=== PATIENT | female | born 1930 | race Caucasian/White ===

== ENCOUNTER 2018-04-19 12:16 | Emergency (ER) | payer MEDICARE, OTHER ==
--- NOTE | 2018-04-19 12:35 | UC ---
Respiratory Complaint HPI - HPI Summary HPI Summary: 87 yo female presents accompanied by son with complaints of a cough. Pt has Alzheimer's at baseline. Pt normally lives in [place], but is here visiting her son. Son tells me that over the last few days pt has had a dry cough. Last night cough seemed worse and pt seemed more confused than usual. This morning cough continued to sound "bad". Son does not think she has been feverish and does not seem SOB. Had a UTI last about a month ago. - History of Current Complaint Chief Complaint: UCRespiratory Stated Complaint: COUGH,BODY ACHES Time Seen by Provider: 04/19/18 12:35 Hx Obtained From: Patient, Family/Direct Service Provider Hx From Patient Unobtainable Due To: Dementia Onset/Duration: Gradual Onset Severity Currently: None Pain Intensity: 0 - Allergies/Home Medications Allergies/Adverse Reactions: Allergies Allergy/AdvReac Type Severity Reaction Status Date / Time No Known Allergies Allergy Verified 04/19/18 12:31 Home Medications: Home Medications Aspirin 81 mg PO 04/19/18 [History] Calcium Carbonate/Vitamin D3 [Calcium/Vitamin D] 1 cap PO 04/19/18 [History] Cranberry Conc/C/Bacill Coag [Cranberry Tablet] 2 each PO 04/19/18 [History] Glucosamine/D3/Boswellia Toña [Osteo Bi-Flex/5-Loxin Adv] 1 tab PO 04/19/18 [ History] Isosorbide Mononitrate [Isosorbide Mononitrate ER] 30 mg PO DAILY 04/19/18 [ History Confirmed 04/19/18] Levothyroxine TAB* [Synthroid TAB*] 88 mcg PO 0800 04/19/18 [History Confirmed 04/19/18] Loratadine [Claritin 10 MG CAP] 10 mg PO 04/19/18 [History] Memantine XR CAP* [Namenda XR CAP*] 28 mg PO DAILY 04/19/18 [History Confirmed 04/19/18] Metoprolol Succinate [Toprol Xl] 25 mg PO BID 04/19/18 [History Confirmed ] Multivit-Min/Iron/Folic/Lutein [Centrum Silver Women Tablet] 1 each PO 04/19/18 [History] [place]-3 Fatty Acids/Fish Oil [[place] 3] 1 cap PO 04/19/18 [History] Turmeric Root Extract [Ra Turmeric] 500 mg PO 04/19/18 [History] clonazePAM [Clonazepam Odt] 0.125 mg PO PRN 04/19/18 [History] PMH/Surg Hx/FS Hx/Imm Hx Cardiovascular History: Hypertension Neurological History: Dementia - Surgical History Surgical History: None - Family History Known Family History: Positive: None - Social History Occupation: Retired Lives: With Family Alcohol Use: None Substance Use Type: None Smoking Status (MU): Former Smoker Review of Systems All Other Systems Reviewed And Are Negative: Yes Constitutional: Positive: Negative Skin: Positive: Negative Eyes: Positive: Negative ENT: Positive: Negative Respiratory: Positive: Cough Cardiovascular: Positive: Negative Gastrointestinal: Positive: Negative Neurovascular: Positive: Negative Neurological: Positive: Negative Psychological: Positive: Negative Physical Exam - Summary Physical Exam Summary: GENERAL: NAD. WDWN. No pain distress. SKIN: No rashes, sores, lesions, or open wounds. HEENT: Head: AT/NC Eyes: Conjunctiva clear without inflammation or discharge. Ears: Hearing grossly normal. TMs intact, no bulging, erythema, or edema. Nose: Nasal mucosa pink and moist. NTTP maxillary and frontal sinus. Throat: Posterior oropharynx without exudates, erythema, or tonsillar enlargement. Uvula midline. NECK: Supple. Nontender. No lymphadenopathy. CHEST: Decreased breath sounds with crackles LLL. No accessory muscle use. Breathing comfortably and in no distress. CV: RRR. Without m/r/g. Pulses intact. Cap refill <2seconds NEURO: Alert. PSYCH: Age appropriate behavior. Triage Information Reviewed: Yes Vital Signs: Initial Vital Signs Temp 99 F 04/19/18 12:28 Pulse 113 04/19/18 12:28 Resp 20 04/19/18 12:28 BP 109/78 04/19/18 12:28 Pulse Ox 98 04/19/18 12:28 Laboratory Tests 04/19/18 13:09 Influenza A (Rapid) Negative Influenza B (Rapid) Negative Vital Signs: Temp Pulse Resp BP Pulse Ox 101 F 96 18 111/76 91 04/19/18 13:35 04/19/18 13:35 04/19/18 13:35 04/19/18 13:35 04/19/18 13:53 Vital Signs Reviewed: Yes UC Diagnostic Evaluation - Laboratory O2 Sat by Pulse Oximetry: 98 Respiratory Course/Dx - Course Course Of Treatment: CXR: IMPRESSION: PATCHY AIRSPACE DISEASE OF THE LEFT MID AND LOWER LUNG. RECOMMEND FOLLOW-UP UNTIL. RESOLUTION TO EXCLUDE UNDERLYING PULMONARY PARENCHYMAL PATHOLOGY. Pt's vitals were rechecked and she was found to be feverish, tachycardic (~115), and O2% was between 89-92% on RA. Given these findings, her age, likely PNA, and PMHx - I advised pt and her son to be further evaluated in the ED for PNA with hypoxia vs early sepsis. Pt and son were agreeable to this. Declined ambulance transfer. Report called to Dr. Jason in the ED. - Differential Dx/Diagnosis Provider Diagnosis: LLL pneumonia, Dementia Discharge - Sign-Out/Discharge Documenting (check all that apply): Patient Departure All imaging exams completed and their final reports reviewed: Yes - Discharge Plan Condition: Stable Disposition: HOME-RECOMMEND TO ED Referrals: James Zhu DO [Primary Care Provider] - Additional Instructions: Please go to the ER for further evaluation of your illness. - Billing Disposition and Condition Condition: STABLE Disposition: Home-Recommend to ED
[2018-04-19 13:36] VITALS: BP 111/76
== END 2018-04-19 13:56 | disposition home health service (06) ==
LOC: UCEAST 12:16
DX: J18.9 Pneumonia, unspecified organism (principal); G20 Parkinson's disease; F02.80 Dementia in other diseases classified elsewhere, unspecified severity, without behavioral disturbance, psychotic disturbance, mood disturbance, and anxiety
CPT/HCPCS: 71046; 99212; G0463

== ENCOUNTER 2018-04-19 15:05 | Inpatient (IN) | payer MEDICARE, OTHER ==
[2018-04-19 16:10] LABS: ABS Basophils 0 10^3/ul (0-0.2); ABS Eosinophils 0.1 10^3/ul (0-0.6); ABS Lymphocytes 1.9 10^3/ul (1.0-4.8); ABS Monocytes 1.5 10^3/ul (0-0.8); ABS Neutrophils 14.8 10^3/ul (1.5-7.7); ABS Nucleated RBC 0 10^3/ul; Eosinophil % 0.5 %; Hematocrit 44 % (35-47); Hemoglobin 14.9 g/dl (12.0-16.0); Lymphocyte % 10.1 %; Mean Corpuscular HGB Conc 34 g/dl (31-36); Mean Corpuscular Hemoglobin 33 pg (27-31); Mean Corpuscular Volume 96 fL (80-97); Mean Platelet Volume 9.5 fL (7.4-10.4); Nucleated Red Blood Cells % 0; Platelet Count 205 10^3/ul (150-450); Red Blood Count 4.58 10^6/ul (4.00-5.40); Red Cell Distribution Width 14 % (10.5-15); White Blood Count 18.3 10^3/ul (3.5-10.8)
[2018-04-19 16:24] LABS: Albumin 4.3 g/dL (3.2-5.2); Albumin/Globulin Ratio 1.6 (1-3); BUN/Creatinine Ratio 19.8 (8-20); Calcium 9.5 mg/dL (8.6-10.3); EGFR African American 75.9 (>60); EGFR Non-African American 62.7 (>60); Globulin 2.7 g/dL (2-4); Total Bilirubin 1.6 mg/dL (0.2-1.0)
[2018-04-19] MEDS ORDERED: NS 0.9% 1000 ML** 2,000 ML IV ONE (16:49)
[2018-04-19] MEDS ORDERED: Azithromycin IV(*) 500 MG in NS 0.9% 250 ML* 250 ML IVPB ONE (16:49)
[2018-04-19] MEDS ORDERED: cefTRIAXone(*) 1 GM in NS 0.9% 50 ML* 50 ML IVPB ONE (16:49)
[2018-04-19] MEDS ORDERED: cefTRIAXone(*) 1 GM ADVAN/BAG ONE (17:06)
--- NOTE | 2018-04-19 17:16 | ED ---
Respiratory - HPI Summary HPI Summary: This pt is an 87 y/o female [facility] referred from [facility] c/o cough and SOB today. Son is present and is giving the history. Son states pt has had a cough over the last few days but worsened yesterday throughout the day. Son reports pt's confusion also seemed to be worsening. Pt has been aching all over and "has been coughing her head off." At Urgent Care pt had a temperature of 100F and prior to discharge from Urgent Care pt had a temp of 101F. Son notes pt had a chest XR that according to the PA in Urgent Care showed pneumonia. Per Urgent Care note, pt had been saturating around 89-92% on room air. Son states pt lives in [place] and she came to visit him on 04/09/18. Pt is a former smoker, quit in 1979. Denies hx of COPD, DM, emphysema, asthma. - History of Current Complaint Chief Complaint: EDShortnessOfBreath Stated Complaint: CHEST DISCOMFORT/COUGH/FEVER/SENT FROM CC Time Seen by Provider: 04/19/18 16:48 Hx Obtained From: Patient, Family/Implementation Engineer - Son Onset/Duration: Lasting Days, Still Present Current Severity: Moderate Pain Intensity: 0 Character: Cough (Nonproductive), Dyspnea at Rest Aggravating Factor(s): Nothing Alleviating Factor(s): Nothing Associated Signs and Symptoms: Fever, SOB - Allergy/Home Medications Allergies/Adverse Reactions: Allergies Allergy/AdvReac Type Severity Reaction Status Date / Time No Known Allergies Allergy Verified 04/19/18 12:31 Home Medications: Home Medications Aspirin EC TAB* [Ecotrin EC Low Dose 81 MG*] 81 mg PO QAM 04/19/18 [History Confirmed 04/19/18] Calcium Carb/Vit D3/Minerals [Calcium 600+D Plus [place]] 1 tab PO QPM 04/19/18 [ History Confirmed 04/19/18] Cranberry Conc/C/Bacill Coag [Cranberry Tablet] 1 tab PO QAM 04/19/18 [History Confirmed 04/19/18] Cranberry Conc/C/Bacill Coag [Cranberry Tablet] 2 tab PO QPM 04/19/18 [History Confirmed 04/19/18] Cyanocobalamin TAB* [Vitamin B12 TAB*] 500 mcg PO DAILY 04/19/18 [History Confirmed 04/19/18] Glucosamine/D3/Boswellia Toña [Osteo Bi-Flex Tablet] 1 tab PO QPM 04/19/18 [ History Confirmed 04/19/18] Isosorbide Mononitrate ER TAB* [Imdur ER TAB*] 30 mg PO QAM 04/19/18 [History Confirmed 04/19/18] Levothyroxine TAB* [Synthroid TAB*] 88 mcg PO QAM 04/19/18 [History Confirmed ] LoraTADine TAB(NF) [Claritin 10 MG TAB(NF)] 10 mg PO QAM 04/19/18 [History Confirmed 04/19/18] Memantine XR CAP* [Namenda XR CAP*] 28 mg PO QAM 04/19/18 [History Confirmed 07/03] Metoprolol Tartrate TAB* [Lopressor TAB*] 25 mg PO BID 04/19/18 [History Confirmed 04/19/18] Multivit-Min/Iron/Folic/Lutein [Centrum Silver Women Tablet] 1 tab PO QPM [History Confirmed 04/19/18] [place]-3 Fatty Acids (Nf) [Fish Oil (NF)] 1,000 mg PO QAM 04/19/18 [History Confirmed 04/19/18] Turmeric/Turmeric Root Extract [Turmeric 500 mg Capsule] 1 cap PO QAM 04/19/18 [ History Confirmed 04/19/18] clonazePAM [Clonazepam] 0.125 mg PO DAILY PRN 04/19/18 [History Confirmed ] PMH/Surg Hx/FS Hx/Imm Hx Endocrine/Hematology History: Denies: Hx Diabetes Cardiovascular History: Reports: Hx Hypertension Respiratory History: Denies: Hx Asthma, Hx Chronic Obstructive Pulmonary Disease (COPD) Musculoskeletal History: Reports: Hx Arthritis Neurological History: Reports: Other Neuro Impairments/Disorders - Alzheimer's Infectious Disease History: No Infectious Disease History: Denies: Traveled Outside the [place] in Last 30 Days - Family History Known Family History: Negative: Cardiac Disease, Hypertension, Diabetes - Social History Alcohol Use: None Substance Use Type: Reports: None Smoking Status (MU): Former Smoker Review of Systems Positive: Fever. Negative: Chills Negative: Erythema Negative: Sore Throat Negative: Chest Pain Positive: Cough. Negative: Shortness Of Breath Negative: Abdominal Pain, Vomiting, Nausea Negative: dysuria, hematuria Positive: Myalgia. Negative: Edema Negative: Rash Neurological: Other - NEG: dizziness All Other Systems Reviewed And Are Negative: Yes Physical Exam - Summary Physical Exam Summary: Constitutional: Well-developed, Well-nourished, Alert. (-) Distressed Skin: Warm, Dry HENT: Normocephalic; Atraumatic Eyes: Conjunctiva normal Neck: Musculoskeletal ROM normal neck. (-) JVD, (-) Stridor, (-) Tracheal deviation Cardio: Rhythm regular, rate normal, Heart sounds normal; Intact distal pulses; The pedal pulses are 2+ and symmetric. Radial pulses are 2+ and symmetric. (-) Murmur Pulmonary/Chest wall: Effort normal. Rhonchi bilaterally. Diminished breath sounds. Abd: Soft, (-) Tenderness, (-) Distension, (-) Guarding, (-) Rebound Musculoskeletal: (-) Edema Lymph: (-) Cervical adenopathy Neuro: Alert, Oriented x3 Psych: Mood and affect Normal Triage Information Reviewed: Yes Vital Signs On Initial Exam: Initial Vitals Temp Pulse Resp BP Pulse Ox 99.4 F 96 24 152/67 96 04/19/18 15:11 04/19/18 15:11 04/19/18 15:11 04/19/18 15:11 04/19/18 15:11 Vital Signs Reviewed: Yes Diagnostics - Vital Signs Vital Signs Temp Pulse Resp BP Pulse Ox 04/19/18 15:11 99.4 F 96 24 152/67 96 - Laboratory Lab Results: Lab Results 04/19/18 04/19/18 04/19/18 Range/Units 16:00 16:00 16:00 WBC 18.3 H (3.5-10.8) 10^3/ul RBC 4.58 (4.00-5.40) 10^6/ul Hgb 14.9 (12.0-16.0) g/dl Hct 44 (35-47) % MCV 96 (80-97) fL MCH 33 H (27-31) pg MCHC 34 (31-36) g/dl RDW 14 (10.5-15) % Plt Count 205 (150-450) 10^3/ul MPV 9.5 (7.4-10.4) fL Neut % (Auto) 80.8 % Lymph % (Auto) 10.1 % [place] % (Auto) 8.3 % Eos % (Auto) 0.5 % Baso % (Auto) 0.3 % Absolute Neuts (auto) 14.8 H (1.5-7.7) 10^3/ul Absolute Lymphs (auto) 1.9 (1.0-4.8) 10^3/ul Absolute Monos (auto) 1.5 H (0-0.8) 10^3/ul Absolute Eos (auto) 0.1 (0-0.6) 10^3/ul Absolute Basos (auto) 0 (0-0.2) 10^3/ul Absolute Nucleated RBC 0 10^3/ul Nucleated RBC % 0 Sodium 141 (135-145) mmol/L Potassium 4.0 (3.5-5.0) mmol/L Chloride 106 (101-111) mmol/L Carbon Dioxide 28 (22-32) mmol/L Anion Gap 7 (2-11) mmol/L BUN 17 (6-24) mg/dL Creatinine 0.86 (0.51-0.95) mg/dL Est GFR ( Amer) 75.9 (>60) Est GFR (Non-Af Amer) 62.7 (>60) BUN/Creatinine Ratio 19.8 (8-20) Glucose 131 H (70-100) mg/dL Lactic Acid 1.1 (0.5-2.0) mmol/L Calcium 9.5 (8.6-10.3) mg/dL Total Bilirubin 1.60 H (0.2-1.0) mg/dL AST 12 L (13-39) U/L ALT 9 (7-52) U/L Alkaline Phosphatase 65 (34-104) U/L Total Protein 7.0 (6.4-8.9) g/dL Albumin 4.3 (3.2-5.2) g/dL Globulin 2.7 (2-4) g/dL Albumin/Globulin Ratio 1.6 (1-3) Result Diagrams: 04/19/18 16:00 04/19/18 16:00 Lab Statement: Any lab studies that have been ordered have been reviewed, and results considered in the medical decision making process. - Radiology Chest XR from Urgent Care Radiology Interpretation Completed By: Radiologist Summary of Radiographic Findings: IMPRESSION: Patchy airspace disease of the left mid and lower lung. Recommend follow-up until resolution to exclude underlying pulmonary parenchymal pathology. Dr. Jason has reviewed this report. Disposition - Course Assessment/Plan: Pt is an 87 y/o female who presents to the ED referred from [facility] c/o cough and SOB today. Pt has been aching all over and "has been coughing her head off." At Urgent Care pt had a temperature of 100F and prior to discharge from Urgent Care pt had a temp of 101F. Son notes pt had a chest XR that according to the PA in Urgent Care showed pneumonia. Per Urgent Care note, pt had been saturating around 89-92% on room air. In the ED course the pt was given IV fluids, Rocephin, Azithromycin. Chest XR shows patchy airspace disease of the left mid and lower lung. Recommend follow-up until resolution to exclude underlying pulmonary parenchymal pathology. Chest XR is consistent with pneumonia. I discussed the case with the hospitalist who accepted the pt for admission. - Diagnoses Provider Diagnoses: Pneumonia - Physician Notifications Discussed Care Of Patient With: Cassandra Kemp - hospitalist Time Discussed With Above Provider: 17:32 Instructed by Provider To: Admit As Inpatient Discharge - Sign-Out/Discharge Documenting (check all that apply): Patient Departure - Admit to [facility] - Discharge Plan Condition: Stable Disposition: ADMITTED TO [facility] Referrals: James Zhu DO [Primary Care Provider] - - Attestation Statements Document Initiated by Scribe: Yes Documenting Scribe: Rosy Carvalho Provider For Whom Scribe is Documenting (Include Credential): Pete Jason MD Scribe Attestation: Rosy Elmore, scribed for Pete Jason MD on 04/19/18 at 1858. Status of Scribe Document: Ready
[2018-04-19] MEDS ORDERED: Ondansetron INJ* 2 MG/ML VIAL IV PRN (18:19)
[2018-04-19] MEDS ORDERED: Albuterol/Ipratropium NEB.SOL* Albuterol 2.5 MG/Ipratropium 0.5 MG 3 ML INH PRN (18:49)
[2018-04-19] MEDS ORDERED: clonazePAM TAB(*) 0.5 MG PO PRN (18:53)
--- NOTE | 2018-04-19 20:14 | HP ---
CC: Dr. Sara Anaya * ADMISSION HISTORY AND PHYSICAL: DATE OF ADMISSION: 04/19/18 PRIMARY CARE PROVIDER: Dr. Sara Anaya in [place]. MY ATTENDING WHILE IN THE HOSPITAL: Dr. Cassandra Kemp.* (DICTATED BY JAZZY DE SOUZA) CHIEF COMPLAINT: Cough, shortness of breath x1 day. HISTORY OF PRESENT ILLNESS: Ms. Arreola is an 87-year-old female with past medical history significant for hypertension, dementia, and GERD, who was in her normal state of health, she recently came back from [place] and was staying with her son with two small children, when she began to develop a cough , shortness of breath, and subjective fevers for 24 hours. The patient's cough is nonproductive and no hemoptysis. The patient has been having significant shortness of breath on exertion and unsteadiness, but no wheezing, no passing out. The patient was recently treated for UTI with unknown antibiotics. The patient has no other recent illnesses or change in her medication. The patient has been staying with a 3-year-old and a 4-year-old and has no other sick contacts. The patient, at this point, is only able to walk several feet without shortness of breath. The patient went to initially Urgent Care and was found to have a left-sided infiltrate on her chest x- ray and was sent to the emergency department for further evaluation. In the emergency department, the patient received azithromycin and ceftriaxone. The patient has not been recently hospitalized and we were asked to evaluate the patient for admission. PAST MEDICAL HISTORY: Hypertension, anxiety, hypothyroidism, GERD, dementia. PAST SURGICAL HISTORY: Hip replacement in 2016. MEDICATIONS: 1. Synthroid 88 mcg p.o. daily. 2. Metoprolol tartrate 25 mg p.o. daily. 3. Imdur 30 mg p.o. daily. 4. Namenda XR 28 mg p.o. daily. 5. Aspirin 81 mg p.o. daily. 6. Klonopin 0.25 mg p.o. daily as needed. 7. Osteo Bi-Flex. 8. Calcium/D 600/300. 9. [place]-3 fatty acids 100 mg p.o. daily. 10. Claritin 10 mg p.o. daily. 11. Turmeric. 12. Cranberry. 13. Vitamin B12, unknown dose. ALLERGIES: No known drug allergies. FAMILY HISTORY: Unknown except for a sister who had a CVA and a brother who is alive and has no known past medical history; he is in his 80s. SOCIAL HISTORY: The patient quit in 1979 with an unknown pack year history before that. The patient drinks alcohol occasionally. Patient has never used illicit drugs. 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 The patient is and has 3 children. REVIEW OF SYSTEMS: A 14-point review of systems was reviewed and is negative except as above in the HPI. PHYSICAL EXAMINATION GENERAL: The patient is an 87-year-old female who appears stated age and sitting comfortably in bed, in no acute distress. VITAL SIGNS: At the time of evaluation, temperature 100.2, pulse rate 86, respiratory rate 24, oxygen saturation 95% on room air, blood pressure 146/73. HEENT: Head: Normocephalic, atraumatic. Sclerae anicteric. No conjunctival injection. Nasal mucosa moist. Oral mucosa moist. No pharyngeal erythema, discharge, or exudate. No sinus tenderness. NECK: Supple, nontender. No lymphadenopathy. No carotid bruits auscultated. No JVD. RESPIRATORY: Diminished breath sounds in the left lower and middle lobes. No other significant adventitious lung sounds. Good air exchange bilaterally. CARDIAC: Regular rate and rhythm. No clicks, murmurs, gallops, or rubs. Pulses are 2+ in the bilateral dorsalis pedis, posterior tibial, and radial areas. ABDOMEN: Soft, nontender, nondistended. Bowel sounds present and normoactive in all 4 quadrants. No hepatosplenomegaly. No abdominal bruits auscultated. No hepatojugular reflux. GENITOURINARY: No suprapubic or CVA tenderness. NEUROLOGIC: Cranial nerves II through XII intact. No focal deficits. Alert and oriented x3. PSYCHIATRIC: Pleasant and cooperative. DIAGNOSTIC STUDIES/LAB DATA: White blood cell count 18.3, hemoglobin 14.9, hematocrit 44, platelet count 205. Sodium 141, potassium 4.0, chloride 106, carbon dioxide 28, anion gap 7, BUN 17, creatinine 0.86, glucose 131, lactic acid 1.1, calcium 9.5. Bilirubin 1.6, AST 12, ALT 9, alkaline phosphatase 65. Protein 7.0, albumin 4.3, globulin 2.7. Studies: Chest x-ray shows patchy airspace densities in the left middle and lower lobes, recommend followup until resolution to exclude underlying pulmonary parenchymal pathology. Electrocardiogram is unremarkable. ASSESSMENT AND PLAN/IMPRESSION: Ms. Arreola is an 87-year-old female with past medical history significant for hypertension, hypothyroidism, anxiety, and gastroesophageal reflux disease, who presents to the emergency department with 1 day of cough and shortness of breath and was found to have consolidation on a chest x-ray consistent with pneumonia. The patient will be admitted to the hospital and will be treated with IV antibiotics and supportive care for community-acquired pneumonia. 1. Community-acquired pneumonia. The patient currently meets systemic inflammatory response syndrome criteria with a white blood cell count of 18 and a pulse rate above 90 and a respiratory rate above 20. The patient in the emergency department was given appropriate IV antibiotics and 30 mg/kg fluid bolus. The patient will have additional fluids as she is currently normotensive. The patient will be continued on ceftriaxone and azithromycin. The patient will be monitored closely. The patient has a pneumonia severity index of 75 indicating 0.9% to 2.8% chance of mortality and does not require ICU admission or other vasopressive agents at this time. 2. Dementia. Continue Namenda and supportive care. The patient is very pleasant. 3. Hypertension. Hold the patient's antihypertensives except for metoprolol at this time. Continue aspirin for primary prevention of myocardial infarction. 4. Anxiety. Continue clonazepam as needed. 5. DVT prophylaxis. The patient will have heparin subcu. 6. FEN. The patient will have a heart-healthy diet without caffeine and no additional fluids as above. 7. Code status. The patient would like to be a full code. The patient's surrogate decision maker will be her son, Christiano Arreola. 8. Disposition. The patient is admitted to observation for pneumonia. TIME SPENT: Approximately 60 minutes was spent on the admission of this patient , 30 of which was spent [id number] with the patient obtaining history and physical and discussing treatment plan. This plan was discussed with my attending, Dr. Cassandra Kemp; she is in agreement. JAZZY DE SOUZA [id number]/[facility] #: [id number] JUAN
[2018-04-19] MEDS: guaiFENesin ER TAB 600 MG PO SCH (21:30)
[2018-04-19] MEDS: Benzonatate CAP* 100 MG PO PRN (21:31)
[2018-04-19] MEDS: Heparin VIAL(*) 5000 UNITS/ML VIAL (FIVE THOUSAND) SUBCUT SCH (21:33)
[2018-04-19] MEDS: Metoprolol Tartrate TAB* 25 MG PO SCH (21:33)
[2018-04-19] MEDS: Acetaminophen TAB* 325 MG PO PRN (21:47)
[2018-04-20] MEDS: Heparin VIAL(*) 5000 UNITS/ML VIAL (FIVE THOUSAND) SUBCUT SCH ×2 (04:58→17:22)
[2018-04-20] MEDS: Levothyroxine TAB* 88 MCG TAB PO SCH (04:58)
[2018-04-20 06:29] LABS: ABS Basophils 0.2 10^3/ul (0-0.2); ABS Eosinophils 0.4 10^3/ul (0-0.6); ABS Lymphocytes 4.3 10^3/ul (1.0-4.8); ABS Neutrophils 9.6 10^3/ul (1.5-7.7); ABS Nucleated RBC 0 10^3/ul; Eosinophil % 2.4 %; Hematocrit 39 % (35-47); Lymphocyte % 27.9 %; Mean Corpuscular HGB Conc 34 g/dl (31-36); Mean Corpuscular Hemoglobin 32 pg (27-31); Mean Corpuscular Volume 95 fL (80-97); Mean Platelet Volume 9.6 fL (7.4-10.4); Nucleated Red Blood Cells % 0; Platelet Count 166 10^3/ul (150-450); Red Blood Count 4.04 10^6/ul (4.00-5.40); Red Cell Distribution Width 13 % (10.5-15); White Blood Count 15.5 10^3/ul (3.5-10.8)
[2018-04-20 06:54] LABS: BUN/Creatinine Ratio 19.4 (8-20); Calcium 8.2 mg/dL (8.6-10.3); EGFR African American 101.2 (>60); EGFR Non-African American 83.7 (>60); Magnesium 1.7 mg/dL (1.9-2.7); Potassium 3.4 mmol/L (3.5-5.0)
[2018-04-20] MEDS ORDERED: Potassium Chlor TAB* 20 MEQ TAB.ER PO ONE (09:35)
[2018-04-20] MEDS ORDERED: Calcium Gluconate INJ* 2 GM in NS 0.9% 100 ML* 100 ML IV ONE (09:36)
[2018-04-20] MEDS ORDERED: Magnesium Sulfate IV* 3 GM in NS 0.9% 100 ML* 100 ML IVPB ONE (09:36)
[2018-04-20] MEDS: guaiFENesin ER TAB 600 MG PO SCH ×2 (10:33→20:25)
[2018-04-20] MEDS: Memantine XR CAP* 28 MG CAP.XR PO SCH (10:33)
[2018-04-20] MEDS: Cetirizine* 10 MG TAB PO SCH (10:33)
[2018-04-20] MEDS: Cyanocobalamin TAB* 500 MCG PO SCH (10:33)
[2018-04-20] MEDS: Metoprolol Tartrate TAB* 25 MG PO SCH ×2 (10:33→20:25)
[2018-04-20] MEDS: Aspirin EC TAB* 81 MG TAB.EC PO SCH (10:33)
[2018-04-20 12:39] LABS: Urine Appearance Clear; Urine Bacteria Absent (Absent); Urine Bilirubin Negative (Negative); Urine Blood Negative (Negative); Urine Color Colorless; Urine Glucose Negative (Negative); Urine Ketones Negative (Negative); Urine Nitrite Negative (Negative); Urine Protein Negative (Negative); Urine Red Blood Cell Trace(0-2/hpf) (Absent); Urine Specific Gravity 1.002 (1.010-1.030); Urine Squamous Epithelial Cell Present (Absent); Urine Urobilinogen Negative (Negative); Urine White Blood Cell Trace(0-5/hpf) (Absent)
--- NOTE | 2018-04-20 15:04 | PN ---
Subjective Date of Service: 04/20/18 Interval History: Pt seen and examined. Meds and labs reviewed. CC: N/A ROS: Denied EATON/dizziness, F/C, N/V, CP, SOB, increased cough, sputum production , abd pain, diarrhea, constipation, dysuria, myalgias, arthralgias, throat pain , and new skin lesions. The rest of the 14 point ROS are unremarkable. PHYSICAL EXAM: GEN APPEARANCE: Awake, not in acute distress HEENT: NC/AT, PERRLA, moist oral mucosa, (-) throat erythema NECK: Soft, supple, (-) cervical LAD, (-)JVD HEART: S1S2 WNL, RRR, No MRG CHEST: CTA, BL, GAE, No W/R/R ABD: Soft, ND/NT, NABS 4x Q EXT: No C/C/E SKIN: Warm to touch PSYCH: No active psychosis, hallucinations, depression, SI/HI Objective Active Medications: Acetaminophen (Tylenol Tab*) 650 mg PO Q6H PRN PRN Reason: FEVER/PAIN Last Admin: 04/19/18 21:47 Dose: 650 mg Albuterol/Ipratropium (Duoneb (Albuterol 2.5 Mg/Ipratropium 0.5 Mg)) 1 neb INH Q6H PRN PRN Reason: SOB/WHEEZING Aspirin (Aspirin Ec Tab*) 81 mg PO QAM [facility] Last Admin: 04/20/18 10:33 Dose: 81 mg Benzonatate (Tessalon Cap*) 100 mg PO BID PRN PRN Reason: COUGH Last Admin: 04/19/18 21:31 Dose: 100 mg Cetirizine HCl (Zyrtec*) 10 mg PO QAM [facility] Last Admin: 04/20/18 10:33 Dose: 10 mg Clonazepam (Klonopin Tab(*)) 0.125 mg PO DAILY PRN PRN Reason: ANXIETY Cyanocobalamin (Vitamin B12 Tab*) 500 mcg PO DAILY [facility] Last Admin: 04/20/18 10:33 Dose: 500 mcg Guaifenesin (Mucinex*) 1,200 mg PO BID [facility] Last Admin: 04/20/18 10:33 Dose: 1,200 mg Heparin Sodium (Porcine) (Heparin Vial(*)) 5,000 units SUBCUT 0600,1800 [facility] Ceftriaxone Sodium 1 gm/ (Sodium Chloride) 50 mls @ 200 mls/hr IVPB Q24H [facility] Azithromycin 250 mg/ Sodium (Chloride) 250 mls @ 250 mls/hr IVPB Q24H [facility] Levothyroxine Sodium (Synthroid Tab*) 88 mcg PO QAM@0600 [facility] Last Admin: 04/20/18 04:58 Dose: 88 mcg Memantine (Namenda Xr Cap*) 28 mg PO QAM [facility] Last Admin: 04/20/18 10:33 Dose: 28 mg Metoprolol Tartrate (Lopressor Tab*) 25 mg PO BID [facility] Last Admin: 04/20/18 10:33 Dose: 25 mg Ondansetron HCl (Zofran Inj*) 4 mg IV Q6H PRN PRN Reason: NAUSEA Vital Signs - 8 hr 04/20/18 08:31 Temperature 97.3 F Pulse Rate 79 Respiratory 18 Rate Blood Pressure 121/78 (mmHg) O2 Sat by Pulse 92 Oximetry Oxygen Devices in Use Now: None Result Diagrams: 04/20/18 06:12 04/20/18 06:12 Additional Lab and Data: Lab Results 04/19/18 04/19/18 04/19/18 Range/Units 16:00 16:00 16:00 WBC 18.3 H (3.5-10.8) 10^3/ul RBC 4.58 (4.00-5.40) 10^6/ul Hgb 14.9 (12.0-16.0) g/dl Hct 44 (35-47) % MCV 96 (80-97) fL MCH 33 H (27-31) pg MCHC 34 (31-36) g/dl RDW 14 (10.5-15) % Plt Count 205 (150-450) 10^3/ul MPV 9.5 (7.4-10.4) fL Neut % (Auto) 80.8 % Lymph % (Auto) 10.1 % [place] % (Auto) 8.3 % Eos % (Auto) 0.5 % Baso % (Auto) 0.3 % Absolute Neuts (auto) 14.8 H (1.5-7.7) 10^3/ul Absolute Lymphs (auto) 1.9 (1.0-4.8) 10^3/ul Absolute Monos (auto) 1.5 H (0-0.8) 10^3/ul Absolute Eos (auto) 0.1 (0-0.6) 10^3/ul Absolute Basos (auto) 0 (0-0.2) 10^3/ul Absolute Nucleated RBC 0 10^3/ul Nucleated RBC % 0 Sodium 141 (135-145) mmol/L Potassium 4.0 (3.5-5.0) mmol/L Chloride 106 (101-111) mmol/L Carbon Dioxide 28 (22-32) mmol/L Anion Gap 7 (2-11) mmol/L BUN 17 (6-24) mg/dL Creatinine 0.86 (0.51-0.95) mg/dL Est GFR ( Amer) 75.9 (>60) Est GFR (Non-Af Amer) 62.7 (>60) BUN/Creatinine Ratio 19.8 (8-20) Glucose 131 H (70-100) mg/dL Lactic Acid 1.1 (0.5-2.0) mmol/L Calcium 9.5 (8.6-10.3) mg/dL Total Bilirubin 1.60 H (0.2-1.0) mg/dL AST 12 L (13-39) U/L ALT 9 (7-52) U/L Alkaline Phosphatase 65 (34-104) U/L Total Protein 7.0 (6.4-8.9) g/dL Albumin 4.3 (3.2-5.2) g/dL Globulin 2.7 (2-4) g/dL Albumin/Globulin Ratio 1.6 (1-3) Microbiology and Other Data: Microbiology 04/19/18 19:36 Legionella Urinary Antigen - Final Urine Negative Legionella Antigen Streptococcus pneumoniae Ag Screen - Final Negative S. pneumo Antigen Assess/Plan/Problems-Billing Assessment: - Patient Problems (1) CAP (community acquired pneumonia) Current Visit: Yes Status: Acute Code(s): J18.9 - PNEUMONIA, UNSPECIFIED ORGANISM SNOMED Code(s): 381846447 Comment: -Continue Rocephin and Azithromycin -Urine Ags (-) for Legionella and S. pneumoniae (2) Dementia Current Visit: Yes Status: Acute Code(s): F03.90 - UNSPECIFIED DEMENTIA WITHOUT BEHAVIORAL DISTURBANCE SNOMED Code(s): 25392931 Comment: -Continue Memantine (3) Hypertension Current Visit: Yes Status: Acute Code(s): I10 - ESSENTIAL (PRIMARY) HYPERTENSION SNOMED Code(s): 54391085 Comment: -Well-controlled -Continue Metoprolol (4) Hypothyroid Current Visit: Yes Status: Acute Code(s): E03.9 - HYPOTHYROIDISM, UNSPECIFIED SNOMED Code(s): 21847263 Comment: -Will re-check TSH in AM -Continue Levothyroxine (5) Anxiety Current Visit: Yes Status: Acute Code(s): F41.9 - ANXIETY DISORDER, UNSPECIFIED SNOMED Code(s): 19958519 Comment: -Continue Clonazepam (6) DVT prophylaxis Current Visit: Yes Status: Acute Code(s): [id number] - SNOMED Code(s): 023658613 Comment: -Continue Heparin SQq12H Status and Disposition: -Continue to follow cultures -For PT eval -Possible D/C in 1-3 days -For ambulatory sats in AM
[2018-04-20] MEDS ORDERED: cefTRIAXone(*) 1 GM in NS 0.9% 50 ML* 50 ML IVPB SCH (17:00)
[2018-04-20] MEDS ORDERED: Azithromycin IV(*) 250 MG in NS 0.9% 250 ML* 250 ML IVPB SCH (17:30)
[2018-04-20] MEDS: Benzonatate CAP* 100 MG PO PRN (20:37)
[2018-04-21] MEDS ORDERED: Melatonin 3 MG TAB PO PRN (00:53)
[2018-04-21] MEDS: Acetaminophen TAB* 325 MG PO PRN (04:59)
[2018-04-21] MEDS: Heparin VIAL(*) 5000 UNITS/ML VIAL (FIVE THOUSAND) SUBCUT SCH (05:00)
[2018-04-21] MEDS: Levothyroxine TAB* 88 MCG TAB PO SCH (05:51)
[2018-04-21 06:27] LABS: ABS Basophils 0.1 10^3/ul (0-0.2); ABS Eosinophils 0.5 10^3/ul (0-0.6); ABS Lymphocytes 3.4 10^3/ul (1.0-4.8); ABS Monocytes 0.8 10^3/ul (0-0.8); ABS Neutrophils 7.5 10^3/ul (1.5-7.7); ABS Nucleated RBC 0 10^3/ul; Eosinophil % 3.8 %; Hematocrit 41 % (35-47); Hemoglobin 13.9 g/dl (12.0-16.0); Lymphocyte % 27.7 %; Mean Corpuscular HGB Conc 34 g/dl (31-36); Mean Corpuscular Hemoglobin 32 pg (27-31); Mean Corpuscular Volume 95 fL (80-97); Mean Platelet Volume 9.4 fL (7.4-10.4); Nucleated Red Blood Cells % 0; Platelet Count 214 10^3/ul (150-450); Red Blood Count 4.28 10^6/ul (4.00-5.40); Red Cell Distribution Width 14 % (10.5-15); White Blood Count 12.3 10^3/ul (3.5-10.8)
[2018-04-21 06:48] LABS: Albumin 3.7 g/dL (3.2-5.2); Albumin/Globulin Ratio 1.7 (1-3); BUN/Creatinine Ratio 15.6 (8-20); Calcium 8.9 mg/dL (8.6-10.3); EGFR African American 106.7 (>60); EGFR Non-African American 88.2 (>60); Globulin 2.2 g/dL (2-4); Magnesium 1.9 mg/dL (1.9-2.7); Phosphorus 2.7 mg/dL (2.5-5.0); Potassium 3.6 mmol/L (3.5-5.0); Total Bilirubin 0.8 mg/dL (0.2-1.0); Total Protein 5.9 g/dL (6.4-8.9)
[2018-04-21 07:21] LABS: TSH (Thyroid Stimulating Horm) 1.11 mcIU/mL (0.34-5.60)
[2018-04-21] MEDS: Metoprolol Tartrate TAB* 25 MG PO SCH (10:57)
[2018-04-21] MEDS: Cyanocobalamin TAB* 500 MCG PO SCH (10:57)
[2018-04-21] MEDS: Memantine XR CAP* 28 MG CAP.XR PO SCH (10:57)
[2018-04-21] MEDS: Benzonatate CAP* 100 MG PO PRN (10:58)
[2018-04-21] MEDS: Aspirin EC TAB* 81 MG TAB.EC PO SCH (10:58)
[2018-04-21] MEDS: guaiFENesin ER TAB 600 MG PO SCH (10:58)
[2018-04-21] MEDS: Cetirizine* 10 MG TAB PO SCH (10:58)
[2018-04-21 13:14] VITALS: BP 127/63
[2018-04-21] MEDS ORDERED: traZODone TAB* 50 MG TAB PO SCH (21:00)
--- NOTE | 2018-04-21 22:25 | DS ---
CC: Dr. Nadiya Carl; Zoran Walters MD; James Zhu DO DISCHARGE SUMMARY: DATE OF ADMISSION: DATE OF DISCHARGE: 04/21/18 DISCHARGE DIAGNOSES: As follows: 1. Community-acquired pneumonia, improved. 2. Dementia. 3. History of hypertension, well controlled. DISCHARGE MEDICATIONS: As follows: 1. Aspirin 81 mg p.o. q.a.m. 2. Benzonatate capsule 100 mg p.o. t.i.d. p.r.n. 3. Clonazepam 0.125 mg p.o. daily p.r.n. 4. Cyanocobalamin 500 mcg p.o. daily. 5. Guaifenesin 1200 mg p.o. b.i.d. for 3 more days. 6. Synthroid 88 mcg p.o. q.a.m. 7. Loratadine 10 mg p.o. q.a.m. 8. Melatonin 3 mg p.o. q.h.s. 9. Memantine XR cap 28 mg p.o. q.a.m. 10. Metoprolol 25 mg p.o. b.i.d. 11. Trazodone 25 mg p.o. q.h.s. 12. Azithromycin 250 mg p.o. daily for 2 more days. 13. Cefdinir 300 mg p.o. b.i.d. for 5 more days. 14. Cranberry tablet, 1 tab p.o. q.a.m. and 2 tabs p.o. q.p.m. 15. Calcium supplementation 1 tab p.o. q.a.m. 16. Glucosamine supplementations 1 tab p.o. q.p.m. 17. Isosorbide mononitrate ER tab, 30 mg p.o. q.a.m. 18. [place] tab, 2 tabs p.o. daily for 10 days. 19. Melatonin 3 mg p.o. q.h.s. 20. Multivitamin 1 tab p.o. q.p.m. 21. [place]-3 fatty acids 1000 mg p.o. q.a.m. 22. Turmeric root extract 1 cap p.o. q.a.m. HISTORY OF PRESENT ILLNESS/HOSPITAL COURSE: The patient is an 87-year-old lady with history of hypertension, anxiety, and hypothyroidism as well as dementia, who was in her usual state of health and recently came back from [place] and was staying with her son with 2 children for the holidays when she started having nonproductive cough 1 day prior to admission. She was then subsequently diagnosed with community-acquired pneumonia and was placed on Rocephin and azithromycin. Her initial leukocytosis of 18,000 on admission has now improved to 12.3 prior to her discharge. She is able to perform activities that she would normally do at home here in the hospital without any problems and ambulates well on room air without any tachycardia nor any desaturation. Furthermore, her workup suggests urine antigens that were negative for legionella as well as Strep pneumoniae. Blood cultures has so far been negative for at least 1 day prior to her discharge today. She had been advised to follow up and/or call her PCP within 3 days post discharge and further advised that if her symptoms resume or develop new ones or feel unwell for any reason to call her PCP first. If her PCP cannot entertain her due to scheduling issues alone, she was advised to call [facility] if the issue is considered nonemergent. She was advised to call my office regarding any questions, concerns, or further clarifications regarding her discharge plans and/or prescriptions and she was encouraged to take her medications as prescribed. REVIEW OF SYSTEMS: She currently denies any headaches, dizziness, fevers, chills, nausea, vomiting, chest pain, shortness of breath, increased coughing or sputum production, abdominal pain, diarrhea, constipation, pain, and/or increased frequency on urination, myalgias, arthralgias, throat pain, or new skin lesions. The rest of the 14-point review of systems are otherwise unremarkable. PHYSICAL EXAMINATION: Reveals the most recent vital signs of records with blood pressure of 139/71, 98 degrees Fahrenheit, 79 beats per minute heart rate , 16 per minute respiratory rate, saturating at 96% on room air. General Appearance: The patient is awake, not in acute distress. HEENT: Normocephalic , atraumatic. PERRLA. Extraocular muscles intact. Negative for icterus. Moist oral mucosa. Negative throat erythema. Neck is soft, supple with no cervical lymphadenopathy, no JVD. Heart: S1, S2, within normal limits. Regular rate and rhythm. No murmurs, rubs, or gallops. Chest: Clear to auscultation bilaterally. Good air entry. No wheezes, rales, or rhonchi. Abdomen is soft, nondistended, nontender. Normoactive bowel sounds x4 quadrants. Extremities: No cyanosis, clubbing, or edema. Psychiatric: No active psychosis, depression, suicidal or homicidal ideation. Skin is warm to touch. TIME SPENT: The total time spent evaluating the patient, reviewing pertinent data, and appropriate documentation is 45 minutes. [id number]/[facility] #: [id number] [facility]
== END 2018-04-21 15:25 | disposition home or self-care (01) | DRG 139 ==
LOC: ED 15:05 → INTOOBSV 20:23 → EDHOLD 20:23 → MED 04-20 07:23 → OBSVTOIN 04-20 16:00
PROVIDERS: ADMIT Pediatrics; ATTEND Student in an Organized Health Care Education/Training Program
DX: J18.9 Pneumonia, unspecified organism (principal); I10 Essential (primary) hypertension; M19.90 Unspecified osteoarthritis, unspecified site; G30.9 Alzheimer's disease, unspecified; F02.80 Dementia in other diseases classified elsewhere, unspecified severity, without behavioral disturbance, psychotic disturbance, mood disturbance, and anxiety; K21.9 Gastro-esophageal reflux disease without esophagitis; E03.9 Hypothyroidism, unspecified; F41.9 Anxiety disorder, unspecified; Z96.649 Presence of unspecified artificial hip joint; Z72.89 Other problems related to lifestyle; Z87.891 Personal history of nicotine dependence; Z82.3 Family history of stroke; Z79.82 Long term (current) use of aspirin
CPT/HCPCS: 36415; 80048; 80053; 81003; 81015; 83605; 83735; 84100; 84443; 85025; 87040; 87086; 87899; 94640; 99285; A9270-GY; G0378; G8978-GP-CJ; G8979-GP-CJ; G8980-GP-CJ; J0456; J0610; J0696; J1644; J3475